=== PATIENT | male | born 2000 | race Caucasian/White ===

== ENCOUNTER 2021-09-13 09:12 | Emergency (ER) | payer BC ==
[~2021-09-13] VITALS: Ht 182.9 cm; Wt 118.2 kg
[2021-09-13 09:20] VITALS: TEMP 99.1
[2021-09-13 11:21] VITALS: BP 129/82; PULSE 87
== END 2021-09-13 11:23 | disposition home or self-care (01) ==
LOC: COL.ER 09:12
DX: D18.09 Hemangioma of other sites (principal); R58 Hemorrhage, not elsewhere classified